=== PATIENT | male | born 1985 | race Caucasian/White ===

== ENCOUNTER 2019-09-10 09:34 | Emergency (ER) | payer SELFPAY ==
[2019-09-10] MEDS ORDERED: Ibuprofen 400 MG TAB ONE (10:01)
--- NOTE | 2019-09-10 10:13 | RAD ---
LEFT FINGER 3 VIEWS: Date: 09/10/2019 HISTORY: Injury, left finger pain. FINDINGS/IMPRESSION: No acute fracture or dislocation is identified. POS: INDERJIT
== END 2019-09-10 10:32 | disposition home or self-care (01) ==
LOC: MADERS 09:34
DX: S60.052A Contusion of left little finger without damage to nail, initial encounter (principal); W31.89XA Contact with other specified machinery, initial encounter

== ENCOUNTER 2020-08-03 12:03 | Emergency (ER) | payer BC | END 2020-08-03 13:00 | disposition home or self-care (01) | LOC: MADERS 12:03 | DX: K12.1 Other forms of stomatitis (principal) | CPT/HCPCS: 99282 ==

== ENCOUNTER 2021-08-24 07:44 | Emergency (ER) | payer BC | END 2021-08-24 09:19 | disposition home or self-care (01) | LOC: MADERS 07:44 | DX: S06.0X0A Concussion without loss of consciousness, initial encounter (principal); S00.03XA Contusion of scalp, initial encounter; S40.021A Contusion of right upper arm, initial encounter; S00.83XA Contusion of other part of head, initial encounter; I10 Essential (primary) hypertension; M19.90 Unspecified osteoarthritis, unspecified site; F17.220 Nicotine dependence, chewing tobacco, uncomplicated; W20.8XXA Other cause of strike by thrown, projected or falling object, initial encounter | CPT/HCPCS: 70450; 70486 ==

== ENCOUNTER 2021-12-30 14:38 | Emergency (ER) | payer BC, SELFPAY | END 2021-12-30 17:05 | disposition home or self-care (01) | LOC: MADERS 14:38 | DX: M70.21 Olecranon bursitis, right elbow (principal); M19.90 Unspecified osteoarthritis, unspecified site; F17.220 Nicotine dependence, chewing tobacco, uncomplicated; Z79.899 Other long term (current) drug therapy ==

== ENCOUNTER 2022-02-18 21:29 | Emergency (ER) | payer MEDICARE, BC ==
[2022-02-18] MEDS ORDERED: Fluorescein Opthalmic Strip ONE (22:05)
[2022-02-18] MEDS ORDERED: Tetracaine 0.5% PF 4 ML BOT ONE (22:05)
[2022-02-18] MEDS ORDERED: Erythromycin Base 0.5% Ophth Oint 3.5 gm Tube ONE (22:59)
== END 2022-02-18 23:10 | disposition home or self-care (01) ==
LOC: MADERS 21:29
DX: H16.8 Other keratitis (principal); I10 Essential (primary) hypertension; F17.220 Nicotine dependence, chewing tobacco, uncomplicated; Z79.899 Other long term (current) drug therapy
CPT/HCPCS: 99283